=== PATIENT | female | born 1970 | race Caucasian/White ===

== ENCOUNTER 2018-04-22 17:00 | Emergency (ER) | payer BC ==
[~2018-04-22] VITALS: Ht 162.6 cm; Wt 66.2 kg
[~2018-04-22 17:00] MED LIST: AMPH5CAP PO
[2018-04-22 17:09] VITALS: BP 114/82
== END 2018-04-22 18:30 | disposition home or self-care (01) ==
LOC: ER 17:02
DX: J20.9 Acute bronchitis, unspecified (principal)
CPT/HCPCS: 71045; 99283; A4606; Z7610